=== PATIENT | male | born 1965 | race Caucasian/White ===

== ENCOUNTER 2020-03-03 07:23 | Emergency (ER) | payer BC, SELFPAY ==
[2020-03-03 07:29] VITALS: BP 130/96; PULSE 73; RESP 16; TEMP 36.5; O2SAT 99
--- NOTE | 2020-03-03 07:39 | W.ED.GENAD ---
Discharge Plan Disposition Patient Disposition: HOME Condition: Good Discharge Details Chief Complaint: Allergic Clinical Impression: Full body hives Primary Care Provider: Flory,Local ED Provider: César Baez Meds and New Rx's Prescriptions: New prednisone 10 mg tablet See Rx Instructions .ROUTE .COMPLEX Qty: 50 RF: 0 famotidine 20 mg tablet 20 mg PO BID Qty: 60 RF: 0 Discharge Instructions Instructions: Urticaria (ED) Additional Instructions: Use Benadryl 25 to 50 mg every 6 hours as needed for hives and itching. Take the famotidine twice a day as directed until hives completely resolved. Start prednisone if you continue to have significant hives. Follow-up with your PCP and corporate planner when you return to [place]. Return to ED for mucosal membrane involvement, throat swelling, difficulty breathing, other concerns. Referrals: Primary Care Provider [Outside] Medical Decision Making Patient presenting with hives/urticaria of unknown etiology. Has had previously about 3 years ago lasting 4 to 6 weeks. No etiology found at that time. Patient without other symptomatology including any GI or respiratory symptoms. Used Benadryl this morning with some relief. Recommend continuing Benadryl 25 to 50 mg every 6 hours as needed. Start famotidine twice a day for H2 blockade. Offered prednisone but declined here. Would like a prescription so if continues over the next couple of days he will start it. He will follow-up with primary care back in [place]. Recommend referral to corporate planner for further evaluation. Return to ED for worsening symptoms especially any GI or respiratory involvement. HPI General Mode of arrival: ambulatory. Date/Time Provider Initiated Documentation: 03/03/20 07:39. Limitations to Documentation: no limitations. Information obtained by: patient and RN notes reviewed. HPI Narrative: Patient presents to ED covered in hives. Started a couple of days ago and has become progressively worse each morning. He had something similar to this 3 months ago with no known trigger. He was stung by a bee a little over a week ago with no significant reaction. He had some poison jennifer on his ankle which is cleared up. He otherwise knows of no triggers. He has no GI symptoms. He has no mucosal involvement. He has no shortness of breath or throat swelling. He is otherwise healthy. He is on no medications. He has no specific allergies he is aware of. Related Data Home Medications Medication Instructions Recorded Confirmed famotidine 20 mg PO BID #60 tab 03/03/20 prednisone See Rx Instructions .ROUTE 03/03/20 .COMPLEX #50 tab Previous Rx's Medication Instructions Recorded famotidine 20 mg PO BID #60 tab 03/03/20 prednisone See Rx Instructions .ROUTE 03/03/20 .COMPLEX #50 tab Allergies Allergy/AdvReac Type Severity Reaction Status Date / Time No Known Allergies Allergy Unverified 03/03/20 07:34 General Stated Complaint: Allergic SHANA: 3 Review of Systems Narrative: As documented in HPI otherwise negative as below. Const: no fever, chills, weakness Resp: no cough, SOB, pleuritic pain CV: no CP, diaphoresis, edema, syncope GI: no abdominal pain, nausea, vomiting, diarrhea Neuro: no headache, numbness, focal weakness, confusion PFSH Medical History No active medical problems (Acute) Social History Smoking/Tobacco Use Status: Never Alcohol Intake: current Substance use type: does not use Do you feel safe at home: Yes Do you feel safe in your relationship?: Yes Exam Narrative Exam Narrative: Const: WDWN male in NAD. HEENT: NC/AT. Normal facial exam. Normal oropharynx. Eyes: Normal conjunctiva and sclera. Neck: Supple. Trachea midline. Lungs: Normal respiratory effort. Lungs are clear. Neuro: A+O x 3. Normal speech, mentation, gait. Cranial nerves II - XII grossly intact. No gross motor or sensory deficit. Ext: No C/C/E. Skin: Warm and dry with diffuse hives involving entire body. Course Vital Signs Vital signs: Vital Signs Temperature 97.7 F 03/03/20 07:29 Pulse 73 03/03/20 07:29 Respiratory Rate 16 03/03/20 07:29 Blood Pressure 130/96 H 03/03/20 07:29 Pulse Oximetry 99 03/03/20 07:29 Temperature 97.7 F 03/03/20 07:29 Temperature Source Skin 03/03/20 07:29 Pulse 73 03/03/20 07:29 Respiratory Rate 16 03/03/20 07:29 Respiratory Effort 03/03/20 07:35 Respiratory Pattern Normal 03/03/20 07:35 Blood Pressure 130/96 H 03/03/20 07:29 Blood Pressure Position Supine 03/03/20 07:29 Pulse Oximetry 99 03/03/20 07:29 Oxygen Delivery Method Room Air 03/03/20 07:29 Oxygen Flow Rate 0 03/03/20 07:29 Pain Level 0 03/03/20 07:29
== END 2020-03-03 08:05 | disposition home or self-care (01) ==
PROVIDERS: Emergency Provider Emergency Medicine
DX: L50.8 Other urticaria (principal)
CPT/HCPCS: 99283